=== PATIENT | female | born 1995 | race Caucasian/White ===

== ENCOUNTER 2018-03-08 18:45 | Emergency (ER) | payer SELFPAY ==
[2018-03-09] MEDS ORDERED: TYLENOL PO ONE (00:18)
--- NOTE | 2018-03-09 00:18 | Emergency Department Report ---
ED Head Trauma HPI - General Chief complaint: Wound/Laceration Stated complaint: 1/2 INCHES LACERATION ABOVE RIGHT EYE Time Seen by Provider: 03/09/18 00:13 Source: EMS Mode of arrival: Stretcher Limitations: No Limitations - History of Present Illness Initial comments: 23-year-old female patient reports that she hit her head on a metal door level while at work including the linen. Patient reports this happened about 1750. Patient admits to nausea but no vomiting she had blurred vision at the time but that has cleared up and complains of a headache. Patient also reports that when she looks up she has more pain in her eye and head. She per currently has no past medical history no known drug allergies and takes no medications on a daily basis. She is currently on her menses. MD Complaint: head injury -: This evening Time: 19:50 Mechanism of Injury: work related injury Location: frontal Loss of Consciousness: no Previous Trauma to this Area: No Place: work Radiation: none Severity scale (0 -10): 7 Quality: aching Consistency: constant Other Injuries: laceration (forehead) Associated Symptoms: vision changes (has resolved), nausea. denies: vomiting - Related Data Previous Rx's Medication Instructions Recorded Last Taken Type Ibuprofen [Motrin 600 MG tab] 600 mg PO Q8H PRN #15 tablet 03/09/18 Unknown Rx Allergies/Adverse reactions: Allergies Allergy/AdvReac Type Severity Reaction Status Date / Time No Known Allergies Allergy Unverified 03/09/18 00:14 ED Review of Systems ROS: Stated complaint: 1/2 INCHES LACERATION ABOVE RIGHT EYE Other details as noted in HPI Gastrointestinal: nausea Skin: other (cut to forehead) Neurological: headache ED Past Medical Hx - Past Medical History Previous Medical History?: No - Surgical History Past Surgical History?: No Additional Surgical History: c section - Social History Smoking Status: Never Smoker - Medications Home Medications: Home Medications Medication Instructions Recorded Confirmed Last Taken Type Ibuprofen [Motrin 600 MG tab] 600 mg PO Q8H PRN #15 tablet 03/09/18 Unknown Rx ED Physical Exam - General Limitations: No Limitations General appearance: alert, in no apparent distress - Head Head exam: Present: other (right fore head small laceration tender to palpate) - Eye Eye exam: Present: EOMI, periorbital tenderness - ENT ENT exam: Present: mucous membranes moist - Neck Neck exam: Present: normal inspection - Expanded Neurological Exam Expanded Patient oriented to: Present: person, place, time Speech: Present: fluid speech Cranial nerves: EOM's Intact: Normal, Gag Reflex: Normal, Tongue Deviation: Normal, Nystagmus: Normal, Facial Sensation: Normal, Facial Palsy with Forehead Movement: Normal, Facial Palsy without Forehead Movement: Normal Cerebellar function: Finger to Nose: Normal, Heel to Corcoran: Normal, Romberg: Normal Upper motor neuron: Pronator Drift: Normal Sensory exam: Upper Extremity Light Touch: Normal, Lower Extremity Light Touch: Normal Motor strength exam: RUE: 4, LUE: 4, RLE: 4, LLE: 4 Best Eye Response (Reeders): (4) open spontaneously Best Motor Response (Soto): (6) obeys commands Best Verbal Response (Reeders): (5) oriented Soto Total: 15 - Psychiatric Psychiatric exam: Present: normal affect, normal mood - Expanded Skin Exam Expanded Type of lesion: Present: laceration Distribution of rash: face (forehead) ED Course Vital Signs 03/08/18 03/09/18 18:54 00:32 Temperature 98.9 F Pulse Rate 75 Respiratory 20 Rate Blood Pressure 114/72 - Laceration /Wound Repair Right Face Wound Location: head Wound Length (cm): 1 Wound's Depth, Shape: superficial, irregular Wound Explored: no foreign body removed Betadine Prep?: Yes Wound Repaired With: Steri-strips, Dermabond Sterile Dressing Applied?: Yes Progress: Patient tolerated procedure well - Radiology Data Radiology results: report reviewed, image reviewed FINAL REPORT EXAM: CT HEAD/BRAIN WO CON HISTORY: head injury with headache and nausea TECHNIQUE: Routine axial imaging was obtained of the brain without IV contrast. FINDINGS: The ventricular system is appropriate in size and is symmetric. There is no evidence of acute stroke or hemorrhage. The visualized sinuses are clear. The mastoid air cells are well pneumatized. The calvarium appears intact. IMPRESSION: Within normal limits. Transcribed By: RB Dictated By: MICHEL MENDOZA MD Electronically Authenticated By: MICHEL MENDOZA MD Signed Date/Time: DD/ TD/TT: - Medical Decision Making Patient has been evaluated by this provider fast track. Tylenol 650 mg ordered for pain management. CT without contrast of the head and brain since patient had a head injury with nausea and orbital tenderness. Critical care attestation.: If time is entered above; I have spent that time in minutes in the direct care of this critically ill patient, excluding procedure time. ED Disposition Clinical Impression: Head injury Qualifiers: Encounter type: initial encounter Qualified Code(s): S09.90XA - Unspecified injury of head, initial encounter Laceration of forehead without complication Qualifiers: Encounter type: initial encounter Qualified Code(s): S01.81XA - Laceration without foreign body of other part of head, initial encounter Disposition: - TO HOME OR SELFCARE Is pt being admited?: No Does the pt Need Aspirin: No Condition: Stable Instructions: Minor Head Injury (ED), Laceration (ED), Skin Adhesive Care (ED) Additional Instructions: Take Tylenol or Motrin for pain management. Follow up with the primary care provider symptoms persist or gets worse. Prescriptions: Ibuprofen [Motrin 600 MG tab] 600 mg PO Q8H PRN #15 tablet PRN Reason: Pain Referrals: PRIMARY CARE, [Primary Care Provider] - 3-5 Days [facility] [Provider Group] - 3-5 Days Forms: Work/School Release Form(ED), Accompanied Note
--- NOTE | 2018-03-09 01:07 | Cat Scan Report ---
FINAL REPORT EXAM: CT HEAD/BRAIN WO CON HISTORY: head injury with headache and nausea TECHNIQUE: Routine axial imaging was obtained of the brain without IV contrast. FINDINGS: The ventricular system is appropriate in size and is symmetric. There is no evidence of acute stroke or hemorrhage. The visualized sinuses are clear. The mastoid air cells are well pneumatized. The calvarium appears intact. IMPRESSION: Within normal limits.
[2018-03-09 01:53] VITALS: BP 112/68
== END 2018-03-09 01:52 | disposition home or self-care (01) ==
LOC: ED 18:45
DX: S01.81XA Laceration without foreign body of other part of head, initial encounter (principal); W45.8XXA Other foreign body or object entering through skin, initial encounter; Y93.89 Activity, other specified; Y99.0 Civilian activity done for income or pay; Y92.69 Other specified industrial and construction area as the place of occurrence of the external cause
CPT/HCPCS: 70450